=== PATIENT | male | born 2005 | race Two or more races ===

== ENCOUNTER 2025-05-08 22:38 | Emergency (ER) | payer MEDICAID, OTHER ==
[~2025-05-08] VITALS: Ht 165.1 cm; Wt 75.3 kg
[2025-05-08 22:43] VITALS: BP 138/78; PULSE 69; RESP 28; TEMP 97; O2SAT 98
== END 2025-05-09 02:54 | disposition left against medical advice (07) ==
LOC: ER 22:38
DX: M25.511 Pain in right shoulder (principal); Z53.21 Procedure and treatment not carried out due to patient leaving prior to being seen by health care provider